=== PATIENT | female | born 1945 | race Two or more races ===

== ENCOUNTER → 2024-08-07 | Outpatient (CLI) | payer OTHER, SELFPAY ==
--- NOTE | 2024-08-07 08:00 | XR_ITS ---
Examination: Screening digital mammography, bilateral Computer aided detection 3-D breast Tomosynthesis, bilateral Date and time of exam: August 07, 2024 0740 hours Compared to mammograms dating to May 2018 Indication: Screening Technique: Nonmagnified MLO, CC views of the breasts to been obtained, reconstructed from 3-D Tomosynthesis images. R2 computer aided detection program utilized for evaluation of suspicious masses and/or abnormal calcifications. 3-D Tomosynthesis images obtained. Findings: The breasts are heterogeneously dense, which may obscure small masses 8 mm focal asymmetry outer right breast CC view, 4.4 cm from the nipple Benign calcifications Impression: BI-RADS Category 0: Incomplete: Need additional imaging evaluation Recommend follow-up spot tomographic views upper outer quadrant right breast to further assess focal asymmetry outer right breast on the current CC view as well as right breast sonography to complete the workup
== END | disposition home or self-care (01) ==
PROVIDERS: PCP Nurse Practitioner Family; Referring Provider Nurse Practitioner Family; Visit Provider Nurse Practitioner Family
DX: Z12.31 Encounter for screening mammogram for malignant neoplasm of breast (principal); N64.89 Other specified disorders of breast
CPT/HCPCS: 77063; 77067

== ENCOUNTER → 2024-08-08 | Outpatient (CLI) | payer OTHER, SELFPAY ==
--- NOTE | 2024-08-08 11:45 | XR_ITS ---
Examination: Abdomen sonogram, complete Date and time of exam: August 08, 2024 1123 hours INDICATIONS: Right upper abdominal pain beginning 3 months ago. . Technique: Multiple real-time grayscale transabdominal sonographic images of the abdomen have been obtained. Findings: Normal gallbladder Normal common bile duct Normal pancreatic head 1.6 cm Aorta not enlarged Liver 12.3 cm no focal liver lesions Normal hepatopedal portal venous flow Patent IVC Right kidney 8.9 cm cortex 1.9 cm Left kidney 10.1 cm cortex 1.8 cm Mild bilateral renal scar formation Spleen 8.9 cm IMPRESSION: Normal gallbladder Liver normal size Mild bilateral renal parenchyma scar formation
== END | disposition home or self-care (01) ==
PROVIDERS: PCP Nurse Practitioner Family; Referring Provider Nurse Practitioner Family; Visit Provider Nurse Practitioner Family
DX: R10.11 Right upper quadrant pain (principal); N28.89 Other specified disorders of kidney and ureter
CPT/HCPCS: 76700

== ENCOUNTER → 2024-11-27 | Outpatient (CLI) | payer OTHER, MEDICAID, SELFPAY ==
--- NOTE | 2024-11-27 10:00 | XR_ITS ---
Examination: Breast ultrasound, unilateral, right complete Date and time of exam: November 27, 2024 1011 hours INDICATIONS: Mammogram August 07, 2024 8mm focal asymmetry outer right breast CC view, 4.4 cm from the nipple Technique: Real-time palomino scale ultrasonographic imaging performed right breast including all 4 quadrants as well as nipple retroareolar and axillary region. Findings: No cystic or solid mass IMPRESSION: BI-RADS Category 1: Negative study
--- NOTE | 2024-11-27 10:45 | XR_ITS ---
Examination: Diagnostic digital mammography, unilateral, right Computer aided detection 3-D breast Tomosynthesis, unilateral Date and time of exam: November 27, 2024 1021 hours INDICATIONS: Mammogram August 07, 2024 8mm focal asymmetry outer right breast CC view Technique: Nonmagnified MLO, CC views of the right breast have been obtained, reconstructed from 3-D Tomosynthesis images. R2 computer aided detection program utilized for evaluation of suspicious masses and/or abnormal calcifications. 3-D Tomosynthesis images obtained. Findings: The breast is heterogeneously dense, which may obscure small masses No suspicious mass is confirmed on the spot compression views Impression: BI-RADS category 2: Benign findings Recommend yearly follow-up mammography
== END | disposition home or self-care (01) ==
LOC: CDIM 09:50
PROVIDERS: PCP Nurse Practitioner Family; Referring Provider Nurse Practitioner Family; Visit Provider Nurse Practitioner Family
DX: R92.321 Mammographic fibroglandular density, right breast (principal)
CPT/HCPCS: 76641; 77061; 77065; G0279

== ENCOUNTER → 2024-12-31 | Outpatient (CLI) | payer OTHER, MEDICAID, SELFPAY ==
--- NOTE | 2024-12-31 16:45 | XR_ITS ---
Examination: MRI of brain without intravenous contrast. MRI brain with intravenous contrast. Date and time of exam:December 31, 2024 1640 hrs. Indications: Diagnosis white matter disease unspecified, unspecified disorder the circular 3 system, ringing in ears, vertigo, dizziness, lightheadedness, dementia, hypertension one year Technique: Multiple axial and sagittal images of the brain to been obtained. Siemens high-resolution 1.52 Tarsha short bore scanner utilized. Sagittal sections, T1 weighted images, TR 500, TE 14, are performed. Axial sections proton-density and T2-weighted images have been obtained. Inversion recovery axial images, TR 9260, TE 111, TR 2500. Diffusion weighted images, axial sections, TR 4800, TE 128, B value 1000. Axial sections, ADC map, TR 4800, TE 128. Axial and coronal images were also obtained post 14 cc gadolinium administered intravenously. Findings:: Enlargement of the sella turcica is not present. The optic chiasm and infundibular stalk are not remarkable. There is no localized enlargement of the medulla or antonieta. Fourth ventricle and cerebellar tonsils appear normal in position. No subacute area of hemorrhage density is seen. Fourth ventricle is midline. Mass in the cerebellopontine angle region is not evident. 7th and 8th nerve complexes exhibit symmetry Globes are symmetrical Orbital musculature including medial lateral rectus muscles do not exhibit abnormality Increased white matter signal is moderate Effacement of the cortical sulcal markings is not identified. Mass effect upon the ventricular system is not identified. Diffusion-weighted images demonstrate no focus of restricted diffusion Contrast images demonstrate no abnormal enhancement cerebellar or cerebral lesions, enhancement in the right mastoid air cells, axial image 8 which may relate to mastoiditis Impression: Negative for acute hemorrhage mass effect or midline shift No acute infarct Moderate chronic microvascular white matter change Enhancement in the right mastoid air cells which may relate to mastoiditis, other etiologies not excluded Recommend elective nonemergent CT middle inner ear post intravenous contrast follow-up
== END | disposition home or self-care (01) ==
LOC: SMRI 16:15
PROVIDERS: PCP Nurse Practitioner Family; Referring Provider Nurse Practitioner Family; Visit Provider Nurse Practitioner Family
DX: R90.82 White matter disease, unspecified (principal); N64.9 Disorder of breast, unspecified
CPT/HCPCS: 70553; A9577

== ENCOUNTER 2025-01-01 10:25 | Outpatient (RCR) | payer OTHER, MEDICAID, SELFPAY ==
--- NOTE | 2025-01-01 11:05 | PT.OIERPT ---
PT OP Initial Eval Patient Information Outpatient Physical Therapy Treatment Date: 01/01/25 Visit Reasons: vertigo Medical Diagnosis: R42 Start of Care: 01/01/25 Date of Onset: 5 months ago Smoking Status Smoking Status: Never smoker Initial Assessment Subjective: Pt is 79 yr old macedonian speaking female who reports dizziness and falls a few months ago. The dizziness comes and goes in sitting and standing and laying down. When she's dizzy it makes her sleepy and and then she takes a pill and it goes away. Pt denies spinning or provocation with head movements. 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 The BP reads in sitting and supine were high and vestibular testing was negative today. These findings aren't consistent with BPPV and seem to be consistent with HTN and/or side effects of meds she is taking. Pt will not benefit from skilled therapy since dizziness is not vestibular. Thank you for your referrals. Short Term and [employer] [employer] Goals Eval and D/C Treatment Plan Eval and D/C Certification Dates: 01/01/25 Procedure Charges OP PT Eval Mod Complex 30 minutes: Yes
== END 2025-01-14 23:59 | disposition home or self-care (01) ==
LOC: CPTX 10:25
PROVIDERS: PCP Nurse Practitioner Family; Referring Provider Nurse Practitioner Family; Visit Provider Nurse Practitioner Family
DX: R42 Dizziness and giddiness (principal)
CPT/HCPCS: 97162

== ENCOUNTER → 2025-01-08 | Outpatient (CLI) | payer OTHER, MEDICAID, SELFPAY ==
--- NOTE | 2025-01-08 11:41 | XR_ITS ---
Examination: Abdomen sonogram, complete Date and time of exam: January 08, 2025, 1219 hours INDICATIONS: Right upper abdominal pain beginning one week ago. Technique: Multiple real-time grayscale transabdominal sonographic images of the abdomen have been obtained. Findings: Normal gallbladder. Normal common bile duct 0.5 cm Pancreatic head 1.8 cm Aorta not enlarged. Liver 12.3 cm no liver lesions Normal hepatopedal portal venous flow Patent IVC Right kidney 9.5 cm cortex 1.2 cm Left kidney 9.4 cm cortex 1.4 cm Mild right moderate left renal scarring Spleen 8.3 cm IMPRESSION: Normal gallbladder Mild right moderate left renal scarring
--- NOTE | 2025-01-08 11:41 | XR_ITS ---
Examination: CT middle inner ear, with intravenous contrast. 2-D coronal reconstructions. 2-D sagittal reconstructions. Date and time of exam: January 04 4025, 1155 hours INDICATIONS: Bilateral ear pain with vertigo beginning one week ago, clinical diagnosis acute mastoiditis CTDI: vol (mGy): 50.3 DLP: (mGycm):150 Technique: Multiple 1.0 mm axial sections of the middle inner ears bilaterally. Intravenous administration 50 cc Isovue-370 High-resolution 64 slice scanner utilized. 2-D coronal reconstructions 2-D sagittal reconstructions Low dose protocols were performed. One or more of the following dose reduction techniques were used; automated exposure control, adjustment of the mA and/or KV according to patient size, use of iterative reconstruction technique. Findings: Axial sections of the right demonstrate severely reduced no mastoid aeration. There are surgical defect in the right mastoid air cells Jugular fossa and carotid canal do not appear remarkable. No deformity of the ossicles. Porus acusticus internus does not exhibit erosion. Cochlear apparatus unremarkable. Semicircular canals normal. External auditory canal open. Coronal reconstructions demonstrate no erosion of the scutum. No soft tissue mass in the attic or Prussak's space is seen. Ossicular mass intact. Axial sections of the left demonstrate severely reduced mastoid aeration. Jugular fossa and carotid canal do not appear remarkable. No deformity of the ossicles. Porus acusticus internus does not exhibit erosion. Cochlear apparatus unremarkable. Semicircular canals normal. External auditory canal open Coronal reconstructions demonstrate no erosion of the scutum. No soft tissue mass in the attic or Prussak's space is seen. Ossicular mass intact. Roof of the mastoid air cells appear intact bilaterally. Impression: Severe bilateral chronic mastoiditis Negative for otitis media Negative for acute mastoiditis
== END | disposition home or self-care (01) ==
PROVIDERS: PCP Nurse Practitioner Family; Referring Provider Nurse Practitioner Family; Visit Provider Nurse Practitioner Family
DX: H70.13 Chronic mastoiditis, bilateral (principal); N28.89 Other specified disorders of kidney and ureter
CPT/HCPCS: 70481; 76700; A4649; Q9967